=== PATIENT | male | born 1960 | race Caucasian/White ===

== ENCOUNTER → 2018-01-30 | Outpatient (CLI) | payer OTHER | END | disposition home or self-care (01) | LOC: RADUSWWP 12:46 | PROVIDERS: ATTEND Internal Medicine | DX: M79.604 Pain in right leg (principal); M79.605 Pain in left leg | CPT/HCPCS: 93923 ==

== ENCOUNTER → 2018-07-21 | Outpatient (CLI) | payer OTHER ==
[2018-07-21 13:23] LABS: Basophils % (A) 1 %; Eosinophils # (A) 0.2 k/uL (0-0.7); Eosinophils % (A) 3 %; HGB 18.1 gm/dL (13.0-17.5); Lymphocytes # (A) 1.6 k/uL (1.0-4.8); Lymphocytes % (A) 29 %; MCH 30.2 pg (25.0-35.0); MCHC 32.8 g/dL (31.0-37.0); MCV 92.1 fL (80.0-100.0); Mean Platelet Volume 8.5; Monocytes # (A) 0.5 k/uL (0-1.0); Monocytes % (A) 10 %; Neutrophils % (A) 55 %; Platelet Count 157 k/uL (150-450); RBC 5.98 m/uL (4.30-5.90); RDW 13.6 % (11.5-15.5); WBC 5.5 k/uL (3.8-10.6)
[2018-07-21 17:06] LABS: Vitamin D 25 Hydroxy 16.1 ng/mL (30.0-100.0)
[2018-07-21 17:08] LABS: Albumin 4.5 g/dL (3.80-4.90); Albumin/Globulin Ratio 1.88 (1.60-3.17); Anion Gap 13.9 mmol/L (4.00-12.00); Calcium 9.5 mg/dL (8.7-10.3); Carbon Dioxide 18.1 mmol/L (21.6-31.8); Globulin 2.4 g/dL (1.6-3.3); Potassium 4.7 mmol/L (3.5-5.5); Total Bilirubin 0.5 mg/dL (0.2-1.2); Total Protein 6.9 g/dL (6.2-8.2)
[2018-07-21 17:16] LABS: T4, Free (Free Thyroxine) 0.9 ng/dL (0.80-1.80)
== END | disposition home or self-care (01) ==
LOC: LABWHC1 10:47
PROVIDERS: ATTEND Physician Assistant
DX: G90.09 Other idiopathic peripheral autonomic neuropathy (principal)
CPT/HCPCS: 36415; 80053; 82306; 82607; 84439; 84443; 84481; 85025

== ENCOUNTER → 2019-06-16 | Outpatient (CLI) | payer OTHER ==
--- NOTE | 2019-06-16 10:31 | P.ARTDOP ---
Arterial Doppler LOWER EXTREMITY ARTERIAL DOPPLER: DATE OF SERVICE: 06/16/2019 Reason for study: Pain with walking. Doppler waveforms: Atypical bilaterally throughout. Pulse volume recording: []. Pressure gradients: Above the low thigh bilaterally. Ankle-brachial indices: 0.67 on the right and 0.57 on the left. Toe brachial indices: [] on the right, [] on the left Impression: Moderate bilateral iliofemoral disease. Clinical correlation recommended. Consider vascular surgical consult.
== END | disposition home or self-care (01) ==
LOC: RADUSWWP 07:26
PROVIDERS: ATTEND Internal Medicine
DX: I77.89 Other specified disorders of arteries and arterioles (principal)
CPT/HCPCS: 93923

== ENCOUNTER → 2019-09-06 | Outpatient (CLI) | payer OTHER ==
[2019-09-06 12:18] LABS: MCH 29.6 pg (25.0-35.0); MCHC 31.9 g/dL (31.0-37.0); MCV 92.6 fL (80.0-100.0); Mean Platelet Volume 8.1; Platelet Count 170 k/uL (150-450); RBC 5.07 m/uL (4.30-5.90); RDW 13.6 % (11.5-15.5); WBC 7.1 k/uL (3.8-10.6)
[2019-09-06 13:21] LABS: Potassium 4.6 mmol/L (3.5-5.1)
== END | disposition home or self-care (01) ==
LOC: LABPAT 11:08
PROVIDERS: ATTEND Internal Medicine Interventional Cardiology
DX: Z01.818 Encounter for other preprocedural examination (principal); I70.213 Atherosclerosis of native arteries of extremities with intermittent claudication, bilateral legs
CPT/HCPCS: 36415; 80051; 82565; 84520; 85027

== ENCOUNTER → 2019-09-10 | Outpatient (CLI) | payer OTHER | LOC: LABWHC1 13:29 | PROVIDERS: ATTEND Internal Medicine Interventional Cardiology | DX: Z03.818 Encounter for observation for suspected exposure to other biological agents ruled out (principal) | CPT/HCPCS: 87635 ==

== ENCOUNTER 2019-09-13 06:22 | Day surgery (SDC) | payer OTHER ==
[2019-09-10 08:22] VITALS: BMI 30.2
[~2019-09-13 06:22] MED LIST: ALPRAZolam 0.5 MG TAB PO PRN; SODIUM CHLORIDE 0.9% 1,000 ML in EMPTY BAG 1 BAG IV ONE
[2019-09-13 06:46] VITALS: TEMP 98
[2019-09-13] MEDS ORDERED: MIDAZOLAM 2 MG/2 ML VIAL IV ONE (07:46)
[2019-09-13] MEDS ORDERED: LIDOCAINE 1% INJ 10MG/ML (20 ML MDV) SQ ONE (07:49)
[2019-09-13] MEDS: VERAPAMIL SYRINGE (5 MG/10 ML) INTRAARTER ONE ×2 (07:50→08:01)
[2019-09-13] MEDS ORDERED: HEPARIN SODIUM 1,000 UN/ML (10ML VL) IV ONE (07:53)
[2019-09-13] MEDS ORDERED: IOPAMIDOL-250 100ML BTL INTRAARTER ONE (08:01)
[2019-09-13] MEDS ORDERED: SODIUM CHLORIDE 0.9% 1,000 ML IV SCH (08:15)
--- NOTE | 2019-09-13 08:18 | P.PCN ---
Date of Procedure: 09/13/19 Operative Findings: AN ABDOMINAL AORTOGRAM AND BILATERAL LOWER EXTREMITIES RUNOFF PERFORMING PHYSICIAN: Neymar Murray MD PROCEDURE PERFORMED: 1. An abdominal aortogram 2. Bilateral lower extremities runoff INDICATION: This is a very pleasant 59-year-old gentleman with hypertension and dyslipidemia who was experiencing bilateral buttock claudication. He was seen by his neurologist who advised the patient to undergo a noninvasive vascular study which came in to be abnormal and because of that he was referred to see me. On examination he does not have any femoral pulses bilaterally. He was brought today to undergo an aortogram with runoff from the left radial approach. COMPLICATION: None LEVEL OF SEDATION: Moderate was sedation length of 15 minute APPROACH: Left radial artery PROCEDURE DESCRIPTION: After obtaining informed consent and explaining the procedure benefits, risks, and complications, the patient was brought to the cardiac laborer ammunition assembly. The left radial artery was cannulated using micropuncture technique, the micropuncture wire passed easily then I placed a 5-Serbian sheath at the left radial artery. After that I give the patient 2 mg of verapamil IA and 10,000 as of heparin IV. We did an abdominal aortogram and bilateral lower extremities runoff using 5- Serbian pigtail catheter using a power injection. The catheter was initially placed at the level of the renal arteries, and it was pulled into above the bifurcation of the aorta into right and left common iliac arteries. The procedure was completed and there was no complications. SELECTIVE PERIPHERAL ANGIOGRAM: The abdominal aorta: Is calcified was mild disease only. The common iliac arteries: The right common iliac artery appears to have mild disease only. The left common iliac artery is occluded. The external iliac arteries: The right and left external iliac arteries are occluded. The internal iliac arteries: The right internal iliac artery is patent. The left internal iliac artery is occluded The common femoral arteries: Both femoral arteries appeared to have mild disease only Superficial femoral arteries: Both SFA appears to have mild to moderate diffuse disease Popliteal arteries: The popliteals appears to have mild disease only Below the knees: There are 3 vessels run off below the knee bilaterally CONCLUSION: 1. Occluded right common iliac artery 2. Occluded bilateral external iliac arteries POSTPROCEDURE MANAGEMENT: CUPOLA TAPPER of bilateral iliacs to be done in the next few weeks
--- NOTE | 2019-09-13 10:29 | IR ---
EXAMINATION TYPE: IR angio abdominal w runoff DATE OF EXAM: 09/13/2019 COMPARISON: NONE HISTORY: Fluoroscopy time. Fluoroscopy was provided to the referring clinician.
[2019-09-13 10:38] VITALS: RESP 18
[2019-09-13 11:25] VITALS: BP 116/67
[2019-09-13] MEDS ORDERED: ALBUTEROL NEBULIZED 2.5 MG/3 ML INHALATION STA (12:14)
[2019-09-13 12:36] VITALS: PULSE 80
== END 2019-09-13 13:00 | disposition home or self-care (01) ==
LOC: CATHCVL 06:22
PROVIDERS: ATTEND Internal Medicine Interventional Cardiology
DX: I70.0 Atherosclerosis of aorta (principal); I70.213 Atherosclerosis of native arteries of extremities with intermittent claudication, bilateral legs; F17.210 Nicotine dependence, cigarettes, uncomplicated; I25.10 Atherosclerotic heart disease of native coronary artery without angina pectoris; I10 Essential (primary) hypertension; E78.5 Hyperlipidemia, unspecified; I25.5 Ischemic cardiomyopathy; Z95.5 Presence of coronary angioplasty implant and graft; Z79.82 Long term (current) use of aspirin; Z79.899 Other long term (current) drug therapy
CPT/HCPCS: 94640; 36200; 75625; 75716; C1769 ×4; C1894; J2250; J2001; J1644; Q9966

== ENCOUNTER → 2019-10-06 | Outpatient (CLI) | payer OTHER | END | disposition home or self-care (01) | LOC: LABWHC1 15:34 | PROVIDERS: ATTEND Internal Medicine Interventional Cardiology | DX: U07.1 COVID-19 (principal) ==

== ENCOUNTER 2019-10-08 06:27 | Day surgery (SDC) | payer OTHER ==
[2019-10-07 08:14] VITALS: BMI 28.8
[~2019-10-08 06:27] MED LIST changes: +ALPRAZolam 0.25 MG TAB PO PRN; -ALPRAZolam 0.5 MG TAB PO PRN; +ASPIRIN 325 MG TAB PO STA
[2019-10-08 07:20] LABS: Basophils # (A) 0.1 k/uL (0-0.2); Basophils % (A) 1 %; Eosinophils % (A) 13 %; HGB 16.4 gm/dL (13.0-17.5); Lymphocytes # (A) 2.9 k/uL (1.0-4.8); Lymphocytes % (A) 39 %; MCH 29.7 pg (25.0-35.0); MCHC 32.9 g/dL (31.0-37.0); MCV 90.2 fL (80.0-100.0); Mean Platelet Volume 7.7; Monocytes # (A) 0.5 k/uL (0-1.0); Monocytes % (A) 7 %; Neutrophils # (A) 2.8 k/uL (1.3-7.7); Neutrophils % (A) 38 %; Platelet Count 164 k/uL (150-450); RBC 5.54 m/uL (4.30-5.90); WBC 7.6 k/uL (3.8-10.6)
[2019-10-08 07:34] LABS: Calcium 9.3 mg/dL (8.4-10.2); Potassium 4.4 mmol/L (3.5-5.1)
[2019-10-08] MEDS: MIDAZOLAM 2 MG/2 ML VIAL IV ONE ×4 (08:04→09:24)
[2019-10-08] MEDS ORDERED: LIDOCAINE 1% INJ 10MG/ML (20 ML MDV) SQ ONE (08:05)
[2019-10-08] MEDS ORDERED: HEPARIN SODIUM 1,000 UN/ML (10ML VL) IV ONE (08:07)
[2019-10-08] MEDS ORDERED: HYDROmorphone 1 MG/ML 1 ML SYRINGE IVP ONE ×2 (08:32→10:29)
[2019-10-08] MEDS: fentaNYL (PF) 50 MCG/ML 2 ML AMP IV ONE ×4 (09:16→10:46)
[2019-10-08] MEDS ORDERED: MIDAZOLAM 2 MG/2 ML VIAL IV ONE (10:14)
[2019-10-08] MEDS ORDERED: NITROGLYCERIN 1000MCG/10ML SYRINGE INTRAARTER ONE (11:07)
[2019-10-08] MEDS ORDERED: niCARdipine Syringe (1,000 mcg/10 mL) INTRAARTER ONE (11:08)
[2019-10-08] MEDS ORDERED: IOPAMIDOL-250 100ML BTL INTRAARTER ONE (11:16)
[2019-10-08] MEDS ORDERED: CLOPIDOGREL 75 MG TAB PO ONE (11:16)
[2019-10-08] MEDS ORDERED: ALBUTEROL NEBULIZED 2.5 MG/3 ML INHALATION PRN (11:26)
[2019-10-08] MEDS ORDERED: SODIUM CHLORIDE 0.9% 1,000 ML in EMPTY BAG 1 BAG IV SCH (11:30)
--- NOTE | 2019-10-08 11:48 | IR ---
EXAMINATION TYPE: IR stent intravas non coronary DATE OF EXAM: 10/08/2019 CLINICAL HISTORY: Peripheral vascular disease. Bilateral leg pain. TECHNIQUE: Fluoroscopy. COMPARISON: None. FINDINGS: Fluoroscopic guidance was provided during iliac angiogram and intravascular angioplasty pr ocedure performed by Dr. Murray. A total of 63.6 minutes of fluoroscopic time was utilized during the procedure and multiple cine runs are acquired. Please refer to procedure note for further details as I was not present nor performed procedure. IMPRESSION: As Above.
[2019-10-08] MEDS: IPRATROPIUM-ALBUTEROL 3 ML NEB INHALATION SCH ×3 (12:07→19:26)
--- NOTE | 2019-10-08 12:53 | LTR ---
DATE OF SERVICE: 10/08/2019 RE: Robin Marcum Dear Dr. Mott; Mr. Robin Marcum was seen in the office recently for bilateral lower extremities intermittent claudication and an angiogram revealed the occlusion of both iliac arteries. I did perform successful recanalizing both iliac arteries, the right and left with an excellent angiographic results and without any complication. I want to thank you for allowing us to participate in his care and please do not hesitate to call if you have any question or concern. Sincerely, MD YANIRA Bull / RAPHAELN: [id number] /
[2019-10-08] MEDS ORDERED: ALBUTEROL NEBULIZED 2.5 MG/3 ML INHALATION SCH (13:00)
--- NOTE | 2019-10-08 13:07 | AN ---
ANGIOGRAPHY REPORT DATE OF SERVICE: 10/08/2019 PERFORMING PHYSICIAN: Neymar Murray MD. PROCEDURE PERFORMED: 1. Successful stenting of the right external iliac artery using 8 x 80 mm Zilver PTX drug-coated stent with an excellent angiographic results and reduction of stenosis from 100% to 0%. 2. Intravascular ultrasound IVUS of the right external iliac artery. 3. Selective right external iliac artery angiogram. 4. Successful stenting of the left common iliac artery using 8 x 59 mm Omnilink balloon expandable stent with an excellent angiographic results. 5. Successful stenting of the left external iliac artery using 8 x 80 mm Zilver PTX drug-coated stent with an excellent angiographic results. 6. Selective left external iliac artery angiogram. INDICATION: This is a 59-year-old gentleman with history of smoking as well as hypertension and dyslipidemia who was experiencing bilateral lower extremities intermittent claudication. He underwent an angiogram recently and that revealed occluded right external iliac artery and occluded left common and left external iliac arteries. He was brought today to undergo an intervention. APPROACH: Right brachial artery. COMPLICATION: None. LEVEL OF SEDATION: Moderate with sedation length of 250 minutes. PROCEDURE DESCRIPTION: After obtaining an informed consent, the patient was brought to the cardiac cardiac cath technician. The right brachial artery was cannulated using micropuncture technique, the micropuncture wire passed easily, then initially I placed an 11 cm 6-Indonesian sheath at the right brachial artery. At that point, anticoagulation was initiated using heparin and the patient was given a total of 10,000 units of heparin with continuous ECT monitoring throughout the procedure. Subsequently, I did advance a 0.035 stiff Glidewire through the short sheath all the way to the descending aorta and all the way to the distal abdominal aorta just above the bifurcation. After that, I did exchange my 11 cm sheath into 110 cm 6-Indonesian sheath. Initially, I tried a 90 cm sheath, but that was too short and because of that I decided to go to 110 cm 6-Indonesian sheath. The tip of the sheath was positioned just above the bifurcation of the aorta into right and left common iliac arteries. Subsequently, I did select the right common iliac artery using 0.035 stiff Glidewire with the backup support of the 0.035 CXI catheter. With the wire and the catheter, I was able to cross the chronic total occlusion of the right external iliac artery and advance the catheter all the way to the right common femoral artery. I did inject through the catheter to prove that I was in the true lumen. After that, I did exchange my 0.035 stiff Glidewire into 0.[address] wire preparing to do intravascular ultrasound. Intravascular ultrasound was performed using over the 0.014 wire and revealed a diameter of the right external iliac artery between 7-8 mm. The length was about 80 mm. I did after that balloon angioplasty using 4 mm x 80 mm balloon and subsequently 6 x 80 mm balloon. After that, I did deploy 8 x 80 mm Zilver PTX drug- coated stent where the stent was positioned under fluoroscopy guidance and deployed under fluoroscopy guidance. Using 7 mm balloon, I performed postdilatation of the stent. I did after that an angiogram which revealed a tight lesion involving the right common femoral artery. Balloon angioplasty was performed using 6 mm AngioSculpt balloon which was inflated under 8 atmospheres multiple times. The final angiogram showed excellent angiographic results with good flow and good pulse at the right groin. For the lesion at the left common and left external iliac artery, I did direct my 0.035 stiff Glidewire and my 0.035 CXI catheter toward the left common iliac artery. With the wire and the catheter, I was able to cross the chronic total occlusion of the left common and left external iliac artery and advanced the wire all the way to the left common femoral artery. Subsequently, I did balloon angioplasty using 6 mm balloon. After that, I deployed 2 balloon expandable stents at the left common iliac artery. Both stents were 8 x 59 mm Omnilink balloon expandable stent where the stent was positioned under fluoroscopy guidance and deployed under its nominal pressure. The second stent was deployed with about 3-4 mm overlap with the first stent. Then, the left external iliac artery was stented using again Zilver PTX drug coated stent, which was 8 x 80 mm stent. I post dilated the stent using 7 mm balloon. The following angiogram showed again tight lesion involving the left common femoral artery. I decided to balloon that, so I used the same 6 x 40 mm AngioSculpt balloon. The balloon was positioned under fluoroscopy guidance and deployed and inflated under fluoroscopy guidance multiple times. Following angiogram showed good angiographic results. I post dilated the stent into 2 stents in the left common iliac artery using 9 mm balloon. Subsequently, I pulled the sheath into above the bifurcation of the aorta and I did final angiogram which showed an excellent angiographic results with good flow in both iliacs and both femoral arteries. The procedure was completed without any complication. I did after that exchange my long sheath into short sheath using 0.035 Glidewire. The procedure was completed without any complication. POSTPROCEDURE MANAGEMENT: 1. Dual anti-platelet therapy. 2. Risk factors modifications. 3. Follow up with the patient. YANIRA / LAURIE: [id number] /
[2019-10-08] MEDS: GABAPENTIN 300 MG CAP PO SCH ×3 (15:55→21:59)
[2019-10-08] MEDS ORDERED: QUEtiapine 100 MG TAB PO SCH (21:00)
[2019-10-08] MEDS ORDERED: ATORVASTATIN 20 MG TAB PO SCH (21:00)
[2019-10-09 00:48] VITALS: RESP 18
[2019-10-09 07:16] LABS: Basophils # (A) 0.1 k/uL (0-0.2); Basophils % (A) 1 %; Eosinophils # (A) 0.3 k/uL (0-0.7); Eosinophils % (A) 4 %; HCT 44.5 % (39.0-53.0); HGB 14.7 gm/dL (13.0-17.5); Lymphocytes % (A) 22 %; MCH 30.6 pg (25.0-35.0); MCHC 33.1 g/dL (31.0-37.0); MCV 92.6 fL (80.0-100.0); Mean Platelet Volume 8.2; Monocytes # (A) 0.5 k/uL (0-1.0); Monocytes % (A) 6 %; Neutrophils # (A) 5.8 k/uL (1.3-7.7); Neutrophils % (A) 66 %; Platelet Count 143 k/uL (150-450); RBC 4.81 m/uL (4.30-5.90); RDW 14.3 % (11.5-15.5); WBC 8.9 k/uL (3.8-10.6)
[2019-10-09 07:33] LABS: Calcium 8.6 mg/dL (8.4-10.2); Potassium 4.8 mmol/L (3.5-5.1)
[2019-10-09] MEDS: IPRATROPIUM-ALBUTEROL 3 ML NEB INHALATION SCH (07:34)
[2019-10-09 08:41] VITALS: BP 145/98; PULSE 92; TEMP 97.7
[2019-10-09] MEDS: GABAPENTIN 300 MG CAP PO SCH (08:42)
--- NOTE | 2019-10-09 08:42 | P.DS ---
Providers Date of admission: October 072019 Attending physician: Neymar Murray Primary care physician: Stated None Hospital Course: This is a 59-year-old gentleman with history of smoking who was experiencing bilateral lower extremities intermittent claudication mainly in the thigh and buttock area who underwent an angiogram and that revealed occluded bilateral iliacs. Yesterday he underwent successful recanalizing chronic total occlusion of the right and left iliac arteries with an excellent angiographic results by the end and reduction of stenosis from 100% to 0% with a very complex and long procedure lasted more than 3 hours. The procedure was performed from the right brachial artery. He does have a great the right brachial pulse and no hematoma seen. He was seen today. Overall he is feeling his legs are warmer. Both feet are warm. I can feel both pulses in the femoral area. He is going to be discharged on dual antiplatelet therapy and I will follow-up with the patient next week in the office Plan - Discharge Summary Discharge Rx Participant: Yes New Discharge Prescriptions: New Atorvastatin [Lipitor] 20 mg PO HS #90 tab Clopidogrel [Plavix] 75 mg PO DAILY #90 tab Continue amLODIPine BESYLATE 5 mg PO DAILY Aspirin [Adult Low Dose Aspirin EC] 81 mg PO DAILY Gabapentin [Neurontin] 900 mg PO TID Metoprolol Succinate [Toprol XL] 25 mg PO DAILY Naproxen [Naprosyn] 500 mg PO Q12HR QUEtiapine FUMARATE [SEROquel] 300 mg PO HS Albuterol Nebulized [Ventolin Nebulized] 2.5 mg INHALATION Q6H PRN PRN Reason: Shortness Of Breath Lisinopril 20 mg PO DAILY Losartan Potassium [Cozaar] 100 mg PO DAILY Umeclidinium Orange [Incruse Ellipta] 1 puff INHALATION DAILY Albuterol Nebulized [Ventolin Nebulized] 2.5 mg INHALATION TID Discharge Medication List Aspirin [Adult Low Dose Aspirin EC] 81 mg PO DAILY 09/10/19 [History] Gabapentin [Neurontin] 900 mg PO TID 09/10/19 [History] Metoprolol Succinate [Toprol XL] 25 mg PO DAILY 09/10/19 [History] Naproxen [Naprosyn] 500 mg PO Q12HR 09/10/19 [History] QUEtiapine FUMARATE [SEROquel] 300 mg PO HS 09/10/19 [History] amLODIPine BESYLATE 5 mg PO DAILY 09/10/19 [History] Albuterol Nebulized [Ventolin Nebulized] 2.5 mg INHALATION Q6H PRN 09/13/19 [History] Albuterol Nebulized [Ventolin Nebulized] 2.5 mg INHALATION TID 10/07/19 [Histor y] Lisinopril 20 mg PO DAILY 10/07/19 [History] Losartan Potassium [Cozaar] 100 mg PO DAILY 10/07/19 [History] Umeclidinium Orange [Incruse Ellipta] 1 puff INHALATION DAILY 10/07/19 [History] Atorvastatin [Lipitor] 20 mg PO HS #90 tab 10/09/19 [Rx] Clopidogrel [Plavix] 75 mg PO DAILY #90 tab 10/09/19 [Rx] Follow up Appointment(s)/Referral(s): Neymar Murray MD [STAFF PHYSICIAN] - 1 Week
[2019-10-09] MEDS ORDERED: LISINOPRIL 20 MG TAB PO SCH (09:00)
[2019-10-09] MEDS ORDERED: LOSARTAN 50 MG TAB PO SCH (09:00)
[2019-10-09] MEDS ORDERED: CLOPIDOGREL 75 MG TAB PO SCH (09:00)
[2019-10-09] MEDS ORDERED: NON FORMULARY DRUG (Umeclidinium Bromide [Incruse Ellipta] 1 PUFF) INHALATION SCH (09:00)
[2019-10-09] MEDS ORDERED: ASPIRIN 81 MG PO SCH (09:00)
[2019-10-09] MEDS ORDERED: amLODIPine 5 MG TAB PO SCH (09:00)
[2019-10-09] MEDS ORDERED: METOPROLOL SUCCINATE (ER) 25 MG TAB.ER.24H PO SCH (09:00)
== END 2019-10-09 09:54 | disposition home or self-care (01) ==
LOC: CATHCVL 06:27 → 3SCARD 11:24 → CATHCVL 10-09 09:54
PROVIDERS: ATTEND Internal Medicine Interventional Cardiology
DX: I70.213 Atherosclerosis of native arteries of extremities with intermittent claudication, bilateral legs (principal); I70.92 Chronic total occlusion of artery of the extremities; I25.10 Atherosclerotic heart disease of native coronary artery without angina pectoris; I10 Essential (primary) hypertension; E78.5 Hyperlipidemia, unspecified; F17.210 Nicotine dependence, cigarettes, uncomplicated; Z95.5 Presence of coronary angioplasty implant and graft; Z79.1 Long term (current) use of non-steroidal anti-inflammatories (NSAID); Z79.82 Long term (current) use of aspirin; Z79.899 Other long term (current) drug therapy
CPT/HCPCS: 94640 ×3; 94760 ×2; 37221; 37223; 37252; 80048 ×2; 85025 ×2; C1894 ×4; C1769 ×8; C1725 ×5; C1876; C1887 ×2; C1753; C1874; J2250; J2001; J3010; J1644; J1170; Q9966

== ENCOUNTER → 2022-07-25 | Outpatient (CLI) | payer OTHER ==
--- NOTE | 2022-07-25 16:40 | US ---
EXAMINATION TYPE: US carotid duplex BILAT DATE OF EXAM: 07/25/2022 COMPARISON: NONE CLINICAL HISTORY: 62-year-old male R42, R41.0, I10. Dizziness, disorientation, essential hypertension TECHNIQUE: Carotid duplex ultrasound examination. Indirect Doppler criteria was utilized. FINDINGS: EXAM MEASUREMENTS: RIGHT: Peak Systolic Velocity (PSV) cm/sec ----- Right CCA: 80.8 ----- Right ICA: 76.4 ----- Right ECA: 58.9 ICA/CCA ratio: 0.9 RIGHT: End Diastole cm/sec ----- Right CCA: 18.3 ----- Right ICA: 19.8 ----- Right ECA: 20.1 LEFT: Peak Systolic Velocity (PSV) cm/sec ----- Left CCA: 79.4 ----- Left ICA: 48.5 ----- Left ECA: 175.7 ICA/CCA ratio: 0.6 LEFT: End Diastole cm/sec ----- Left CCA: 19.3 ----- Left ICA: 15.7 ----- Left ECA: 14.9 VERTEBRALS (direction of flow): Right Vertebral: Antegrade Left Vertebral: Antegrade SNOWMAKER NOTES: Elevated velocities Left ECA proximal without significant stenosis visualized, unk nown etiology. Mild plaque visualized bilateral carotid bulbs/ICA proximal/ECA proximal. IMPRESSION: 1. No hemodynamically significant internal carotid artery stenosis on either side. 2. Some elevation of velocities within the left ECA could be due to vessel tortuosity. Criteria for Assigning % of Stenosis / Diameter reduction (Estimation based on the indirect measurements of the internal carotid artery velocities (ICA PSV). 1. Normal (no stenosis)=ICA PSV < 125 cm/s: ratio < 2.0: ICA EDV<40 cm/s. 2. Less than 50% stenosis=ICA PSV < 125 cm/s: ratio < 2.0: ICA EDV<40 cm/s. 3. 50 to 69% stenosis=ICA PSV of 125 to 230 cm/s: ration 2.0 ? 4.0: ICA EDV 40-100 cm/s. 4. Greater than 70% stenosis to near occlusion= ICA PSV > 230 cm/s: ratio > 4.0: ICA EDV > 100 cm/s. 5. Near occlusion= ICA PSV velocities may be low or undetectable: variable ratio and ICA EDV. 6. Total occlusion=unable to detect flow.
== END | disposition home or self-care (01) ==
LOC: RADUSWWP 14:36
PROVIDERS: ATTEND Family Medicine Addiction Medicine
DX: I10 Essential (primary) hypertension (principal); J44.9 Chronic obstructive pulmonary disease, unspecified; R42 Dizziness and giddiness; R41.0 Disorientation, unspecified
CPT/HCPCS: 93880

== ENCOUNTER → 2024-07-17 | Outpatient (CLI) | payer MEDICARE ==
[2024-07-17 10:55] LABS: Basophils # (A) 0.1 k/uL (0-0.2); Basophils % (A) 1 %; Eosinophils # (A) 0.2 k/uL (0-0.7); Eosinophils % (A) 4 %; HGB 18.7 gm/dL (13.0-17.5); Lymphocytes % (A) 34 %; MCHC 33.9 g/dL (31.0-37.0); MCV 94.5 fL (80.0-100.0); Monocytes # (A) 0.4 k/uL (0-1.0); Monocytes % (A) 7 %; Neutrophils # (A) 3.2 k/uL (1.3-7.7); Neutrophils % (A) 54 %; Platelet Count 138 k/uL (150-450); RBC 5.83 m/uL (4.30-5.90); RDW 13.8 % (11.5-15.5); WBC 5.9 k/uL (3.8-10.6)
[2024-07-17 11:04] LABS: HCT 55.1 % (39.0-53.0)
[2024-07-17 11:28] LABS: RBC Morphology Normal
[2024-07-18 09:06] LABS: % Iron Saturation 18.5 (15.00-50.00)
== END | disposition home or self-care (01) ==
LOC: LABWHC1 10:25
PROVIDERS: ATTEND Family Medicine Addiction Medicine
DX: D50.8 Other iron deficiency anemias (principal); B17.10 Acute hepatitis C without hepatic coma; R97.20 Elevated prostate specific antigen [PSA]
CPT/HCPCS: 36415; 82728; 83540; 83550; 84153; 85025; 87522